=== PATIENT | female | born 1975 | race Caucasian/White ===

== ENCOUNTER → 2016-08-11 | Outpatient (CLI) | payer BC ==
[2016-08-11 14:38] LABS: BASOPHILS % 0.5 % (0.0-2.0); EOSINOPHILS # 0.1 10^3/ul (0.0-0.5); EOSINOPHILS % 0.7 % (0.0-7.0); HEMATOCRIT 42.3 % (37.0-47.0); HEMOGLOBIN 14.2 g/dl (12.0-16.0); LYMPHOCYTES # 3.5 10^3/ul (0.8-2.9); MEAN CORPUSCULAR HEMOGLOBIN 30.6 pg (29.0-33.0); MEAN CORPUSCULAR HGB CONC 33.6 g/dl (32.0-37.0); MEAN CORPUSCULAR VOLUME 91.3 fl (82.0-101.0); MEAN PLATELET VOLUME 9.5 fl (7.4-10.4); MONOCYTE # 0.4 10^3/ul (0.3-0.9); MONOCYTES % 4.3 % (0.0-11.0); NEUTROPHIL # 5.9 10^3/ul (1.6-7.5); NEUTROPHILS % 59.5 % (39.0-77.0); PLATELET COUNT 265 10^3/UL (140-440); RED BLOOD COUNT 4.64 10^6/ul (4.20-5.40); RED CELL DISTRIBUTION WIDTH 13.1 % (11.5-14.5); UNCORRECTED WBC 9.9 10^3/ul (4.8-10.8); WHITE BLOOD COUNT 9.9 10^3/ul (4.8-10.8)
[2016-08-11 14:55] LABS: CONDITION 1
[2016-08-11 15:02] LABS: CHLORIDE 103 mmol/L (97-110)
[2016-08-11 15:03] LABS: ALBUMIN 4.2 g/dl (3.3-4.9); SODIUM 140 mmol/L (135-144)
[2016-08-11 15:04] LABS: POTASSIUM 3.9 mmol/L (3.5-5.1)
[2016-08-11 15:05] LABS: CHOLESTEROL 142 mg/dl (100-200)
[2016-08-11 15:06] LABS: ALANINE AMINOTRANSFERASE 24 IU/L (13-69); ALBUMIN/GLOBULIN RATIO 1.23; ALKALINE PHOSPHATASE 90 IU/L (42-121); ANION GAP 16 (8-16); ASPARTATE AMINO TRANSFERASE 24 IU/L (15-46); BILIRUBIN,INDIRECT 0.9 mg/dl (0-1.1); BILIRUBIN,TOTAL 0.9 mg/dl (0.2-1.3); BLOOD UREA NITROGEN 10 mg/dl (7-20); CARBON DIOXIDE 25 mmol/L (21-31); GLUCOSE 89 mg/dl (70-220); TOTAL PROTEIN 7.6 g/dl (6.1-8.1)
[2016-08-11 15:07] LABS: CALCIUM 8.6 mg/dl (8.4-10.2); CHOL/HDL RATIO 2.8 RATIO; HDL CHOLESTEROL 49 mg/dl (34-88); TRIGLYCERIDES 107 mg/dl (0-149)
[2016-08-11 16:13] LABS: FOLATE > 20.0 ng/ml (2.8-20.0)
== END | disposition home or self-care (01) ==
LOC: LAB 13:52
PROVIDERS: ATTEND Family Medicine
DX: E03.9 Hypothyroidism, unspecified (principal); E55.9 Vitamin D deficiency, unspecified
CPT/HCPCS: 80053; 80061; 82306; 82607; 82746; 83036; 84439; 84443; 85025; 86255

== ENCOUNTER → 2016-09-09 | Outpatient (CLI) | payer BC ==
[2016-09-11 07:41] LABS: PROTEIN, TOTAL 6.5 g/dL (6.1-8.1)
[2016-09-12 17:13] LABS: CREATININE, RANDOM URINE 144 mg/dL (20-320); PROTEIN/CREATININE RATIO 56 mg/g creat (21-161)
== END | disposition home or self-care (01) ==
LOC: LAB 15:59
PROVIDERS: ATTEND Family Medicine
DX: R77.1 Abnormality of globulin (principal)
CPT/HCPCS: 82570; 84155; 84156; 84165; 84166

== ENCOUNTER → 2017-01-09 | Outpatient (CLI) | payer BC ==
[2017-01-09 09:44] LABS: ALBUMIN 4.3 g/dl (3.3-4.9); BILIRUBIN,INDIRECT 0.1 mg/dl (0-1.1); BILIRUBIN,TOTAL 0.1 mg/dl (0.2-1.3); TOTAL PROTEIN 7.2 g/dl (6.1-8.1)
== END | disposition home or self-care (01) ==
LOC: LAB 06:12
PROVIDERS: ATTEND Nurse Practitioner Family
DX: B35.1 Tinea unguium (principal)
CPT/HCPCS: 80076

== ENCOUNTER → 2017-08-14 | Outpatient (CLI) | END | disposition home or self-care (01) ==

== ENCOUNTER → 2017-10-21 | Outpatient (CLI) | END | disposition home or self-care (01) ==